=== PATIENT | male | born 1970 | race Caucasian/White ===

== ENCOUNTER 2023-08-27 15:13 | Emergency (ER) | payer SELFPAY ==
[2023-08-27] MEDS ORDERED: Ketorolac 30 MG/ML SDV IVPUSH STA (15:30)
[2023-08-27] MEDS ORDERED: Sodium Chloride 0.9% 10 ML Syringe FLUSH PRN (15:30)
[2023-08-27] MEDS ORDERED: Ondansetron 4 MG/2 ML SDV IVPUSH STA (15:30)
[2023-08-27] MEDS ORDERED: Sodium Chloride 0.9% 1,000 ML IV STA (15:30)
[2023-08-27] MEDS ORDERED: Sodium Chloride 0.9% 2.5 ML Syringe FLUSH PRN (15:30)
[2023-08-27 16:05] LABS: BASOPHILS ABSOLUTE AUTO 0.02 K/uL (0.00-0.20); BASOPHILS PERCENT AUTO 0.4 % (0.0-1.0); HEMATOCRIT 45.6 % (42.0-52.0); HEMOGLOBIN 15.2 g/dL (14.0-18.0); IMMATURE GRAN ABSOLUTE AUTO 0.01 K/uL (0.00-0.05); IMMATURE GRAN PERCENT AUTO 0.2 % (0.0-0.4); LYMPHOCYTES ABSOLUTE AUTO 1.45 K/uL (1.00-4.80); LYMPHOCYTES PERCENT AUTO 29.2 % (24.0-44.0); MEAN CORPUSCULAR HEMOGLOBIN 29.7 pg (28.0-32.0); MEAN CORPUSCULAR HGB CONC 33.3 g/dL (32.0-36.0); MEAN CORPUSCULAR VOLUME 89.1 fL (83.0-99.0); MEAN PLATELET VOLUME 9.6 fL (9.4-12.4); MONOCYTES ABSOLUTE AUTO 0.34 K/uL (0.00-0.80); MONOCYTES PERCENT AUTO 6.9 % (0.0-8.0); NEUTROPHILS ABSOLUTE AUTO 2.94 K/uL (1.80-7.70); NEUTROPHILS PERCENT AUTO 59.3 % (41.0-71.0); PLATELET COUNT,PLT 173 K/uL (150-400); RED BLOOD CELL COUNT 5.12 M/uL (4.52-5.90); WHITE BLOOD CELL COUNT,WBC 4.96 K/uL (3.9-11.3)
[2023-08-27 16:41] LABS: A/G RATIO 1.2 (0.9-1.6); ALBUMIN 3.6 g/dL (3.4-5.0); BILIRUBIN TOTAL 0.7 mg/dL (0.2-1.0); CALCIUM 9.6 mg/dL (8.5-10.1); CREATININE 1.1 mg/dL (0.8-1.3); EST CRCL DRUG DOSING (CG) 84.26 mL/min; MAGNESIUM 2.2 mg/dL (1.8-2.4); POTASSIUM,K 3.9 mmol/L (3.5-5.1); PROTEIN TOTAL,TP 6.6 g/dL (6.4-8.2)
[2023-08-27] MEDS ORDERED: Iopamidol 755 Mg/ML 100 ML Bottle IVPUSH STA (17:34)
== END 2023-08-27 19:09 | disposition home or self-care (01) ==
LOC: MW.ED 15:13
DX: K59.00 Constipation, unspecified (principal); R59.1 Generalized enlarged lymph nodes
CPT/HCPCS: 36415; 74177; 80053; 83690; 83735; 84484; 85025; 96361; 96374; 96375; 99284; J1885; J2405; J3490; J7030; Q9967

== ENCOUNTER 2025-03-27 08:43 | Emergency (ER) | payer BC ==
[2025-03-27] MEDS ORDERED: Naloxone 0.4 MG/ML SDV IVPUSH PRN (09:13)
[2025-03-27] MEDS: diphenhydrAMINE 50 MG/ML SDV IVPUSH ONE (09:21)
[2025-03-27] MEDS: Metoclopramide 10 MG/2 ML SDV IVPUSH ONE (09:21)
[2025-03-27] MEDS: fentaNYL 100 MCG/2 ML SDV IVPUSH ONE (09:22)
[2025-03-27] MEDS: Sodium Chloride 0.9% 500 ML IV SCH (09:22)
== END 2025-03-27 11:19 | disposition home or self-care (01) ==
LOC: MW.ED 08:43
DX: G43.909 Migraine, unspecified, not intractable, without status migrainosus (principal); F17.210 Nicotine dependence, cigarettes, uncomplicated; Z79.899 Other long term (current) drug therapy
CPT/HCPCS: 70450; 93005; 96374; 96375; 99284; J1200; J2765; J3010; J7040